=== PATIENT | male | born 1980 | race Caucasian/White ===

== ENCOUNTER 2024-12-24 06:08 | Emergency (ER) | payer SELFPAY ==
[~2024-12-24] VITALS: Ht 157.4 cm; Wt 44.5 kg
[2024-12-24] MEDS ORDERED: Cyclobenzaprine Hydrochlorid 10 MG TAB PO ONE (07:20)
[2024-12-24] MEDS ORDERED: Dexamethasone Sodium Phospha 20 MG/5 ML VIAL IM ONE (07:20)
[2024-12-24] MEDS ORDERED: MELOXICAM15 MG PO (08:56)
[2024-12-24] MEDS ORDERED: CYCLOBENZAPRINE5 M3 PO (08:56)
== END 2024-12-24 08:59 | disposition home or self-care (01) ==
LOC: ED 06:08
DX: M54.50 Low back pain, unspecified (principal); M62.838 Other muscle spasm